=== PATIENT | male | born 1935 | race Caucasian/White ===

== ENCOUNTER 2019-07-29 12:50 | Observation (INO) | payer MEDICARE ==
[~2019-07-29] VITALS: Ht 180.3 cm; Wt 78.3 kg
[2019-07-29 13:38] LABS: BASOPHILS ABSOLUTE AUTO 0.06 K/mm3 (0.00-0.23); BASOPHILS PERCENT AUTO 1 % (0-2); EOSINOPHILS ABSOLUTE AUTO 0.43 K/mm3 (0.00-0.68); EOSINOPHILS PERCENT AUTO 4 % (0-6); Hemoglobin 11.8 g/dL (13.5-17.5); IMMATURE GRAN ABSOLUTE AUTO 0.03 K/mm3 (0.00-0.10); IMMATURE GRAN PERCENT AUTO 0 % (0-1); LYMPHOCYTES ABSOLUTE AUTO 2.42 K/mm3 (0.84-5.20); LYMPHOCYTES PERCENT AUTO 25 % (21-46); MONOCYTES ABSOLUTE AUTO 0.91 K/mm3 (0.16-1.47); MONOCYTES PERCENT AUTO 9 % (4-13); Mean Corpuscular HGB 32.2 pg (26.0-34.0); Mean Corpuscular HGB Conc 31.9 g/dL (31.5-36.5); Mean Corpuscular Volume 101 fL (80-100); Mean Platelet Volume 10.3 fL (9.1-12.4); NEUTROPHILS ABSOLUTE AUTO 5.82 K/mm3 (1.96-9.15); NEUTROPHILS PERCENT AUTO 60 % (41-73); Platelet Count 210 K/mm3 (150-400); RDW Coefficient Variation 13.6 % (11.7-14.2); RDW Standard Deviation 50.6 fL (35.1-46.3); Red Blood Cell Count 3.67 M/mm3 (4.30-5.90); White Blood Cell Count 9.67 K/mm3 (4.00-11.30)
[2019-07-29] MEDS ORDERED: CARV6.25 PO (13:52)
[2019-07-29] MEDS ORDERED: K-Dur10 MEQ PO (13:53)
[2019-07-29] MEDS ORDERED: FURO40 PO (13:53)
[2019-07-29] MEDS ORDERED: LOSA50 PO (13:53)
[2019-07-29] MEDS ORDERED: Zocor20 MG PO (13:54)
[2019-07-29] MEDS ORDERED: ELIQUIS2.5 MG PO (13:54)
[2019-07-29] MEDS ORDERED: FISH OIL 1,001000 MG PO (13:55)
[2019-07-29] MEDS ORDERED: FOLGARD TABLET1 EACH PO (13:55)
[2019-07-29] MEDS ORDERED: MSM1000 MG PO (13:55)
[2019-07-29 13:56] LABS: Alanine Aminotransfer (ALT/SGP 11 U/L (12-78); Albumin, Blood 3.5 g/dL (3.4-5.0); Albumin/Globulin Ratio 0.9 (0.8-1.8); Alk Phos 118 U/L (50-136); Anion Gap 6 mmol/L (6-16); Aspartate Aminotrans (AST/SGOT 14 U/L (12-37); Bilirubin, Total 0.7 mg/dL (0.1-1.0); Blood Urea Nitrogen 21 mg/dL (8-24); Bun/Creatinine Ratio 15.6 (12.0-20.0); CO2, Blood 30 mmol/L (21-32); Chloride, Blood 106 mmol/L (98-108); Creatinine, Blood 1.35 mg/dL (0.60-1.20); Globulin, Blood 3.8 g/dL (2.2-4.0); Glomerular Filtration Rate 54 (60-); Glucose, Blood 90 mg/dL (70-99); Potassium, Blood 3.5 mmol/L (3.5-5.5); Sodium, Blood 142 mmol/L (136-145); Total Protein, Blood 7.3 g/dL (6.4-8.2); Troponin I <0.015 ng/mL (0.000-0.040)
[2019-07-29] MEDS ORDERED: THERA1 EACH PO (14:25)
--- NOTE | 2019-07-29 16:44 | NUR ---
Echocardiogram completed.
--- NOTE | 2019-07-29 18:32 | NUR ---
ASSUMED CARE APPROXIMATELY 1600; PT A&O; TRANSFERED SELF TO BED; SENT OVER [facility] FOLLOWING URGENT CARE VISIT THERE; SBA IN ROOM FOR BATHROOM PRIVILEGES; PT HERE FOR OBS FOR AFIB W/BRADYCARDIA; PT DENIES PAIN; DENIES CHEST PAIN; DENIES NEEDS AT THIS TIME; O2 SATS >92 ON RA; PT REPORTS HE HAS A HX OF AFIB AND LOW HR; STATES HE FELL FROM A LADDER AT HOME SEVERAL DAYS AGO AND HAS HAD MUSCLE SORENESS AND BACK PAIN SINCE; STATES HE HAS PAIN IN HIS CHEST IN THE MORNINGS WHEN HE GETS OUT OF BED BUT SAID IT IS MUSCLE RELATED, DENIES CARDIAC RELATED; CALL LIGHT IN REACH; BED LOWEST POSITION; WILL CONTINUE MONITOR AND ASESS UNTIL HAND OF TO NOC SHIFT RN.
--- NOTE | 2019-07-29 20:58 | NUR ---
Assumed care Assumed care of pt at approx 1920; VSS with HR in 50's. Pt denies chest pain or pressure, denies SOB, denies any sx of bradycardia. Pt appears in no apparent sign of distress, breathing easy and unlabored at rest. Pt alert and oriented, answers questions appropriately, moves all extremities independantly. Pt able to recalls events of recent fall at home, able to recall events that lead to hospital stay. Appears to be an accurate historian. Pt able to make needs known by using call light. Pt educated extensively by this RN to call before ambulation to ensure safety. Pt verbalized understanding. Will continue to monitor.
--- NOTE | 2019-07-29 21:00 | NUR ---
Bradycardia in 30's: supervisor sound technician notified this RN of bradycardia of 32-35 that sustained for approx 1 minute. This RN immediately at bedside, pt presents asleep. this RN woke pt up and HR increased to 60 bpm. pt denies chest pain or pressure, denies SOB. Pt assisted to sit on edge of bed, pt does c/o of mild dizziness with positional changes that pt states "this happens in the morning". Dizziness resolved within moments of position change. Pt back to lying in low fowlers; HR back down to 45 bpm at this time.
--- NOTE | 2019-07-30 06:23 | NUR ---
Shift Summary Pt remains with bradycardia this shift, remains asymptomatic. HR average in mid 40's but has touched down as low at 29. Provider made aware. Zoll placed at bedside per clinical judegment. Other VSS. No acute changes from initial shift assessment. Alert and oriented, able to make needs known, uses call light appropriately, follows commands and directions. Pt denies any cardiac symptoms or sustained dizziness or lightheadedness, denies chest pain or pressure. Pt denies pain. No acute concerns to note this shift apart from continued bradycardia. Will continue to monitor undtil petra RN assumes care.
--- NOTE | 2019-07-30 15:00 | NUR ---
DISCHARGE NOTE PT STABLE FOR DISCHARGE. IV REMOVED. DISCHARGE INSTRUCTIONS AND DISCHARGE MEDCIATIONS REVIEWED WITH PT. PT VERBALIZES UNDERSTANDING AND DENIES QUESTIONS. [facility] CALLED TO PLACE ZIOPATCH PRIOR TO LEAVING THE FACILITY. PT DISCHARGED VIA WHEELCHAIR WITH BELONGINGS TO WAITING CAR.
== END 2019-07-30 15:12 | disposition home or self-care (01) ==
LOC: ER 12:50 → PCU 14:45
PROVIDERS: Emergency Medicine; ADMIT Family Medicine
DX: I48.20 Chronic atrial fibrillation, unspecified (principal); I12.9 Hypertensive chronic kidney disease with stage 1 through stage 4 chronic kidney disease, or unspecified chronic kidney disease; T14.8XXA Other injury of unspecified body region, initial encounter; N18.3 Chronic kidney disease, stage 3 (moderate); W11.XXXA Fall on and from ladder, initial encounter; E78.5 Hyperlipidemia, unspecified; D63.1 Anemia in chronic kidney disease; H91.90 Unspecified hearing loss, unspecified ear; Z88.8 Allergy status to other drugs, medicaments and biological substances; Z79.01 Long term (current) use of anticoagulants; Z79.899 Other long term (current) drug therapy; Z87.891 Personal history of nicotine dependence
CPT/HCPCS: 36415; 71045; 80053; 84484; 85025; 93005; 93010; 93306; 99285-25

== ENCOUNTER 2020-02-13 10:17 | Observation (INO) | payer OTHER, MEDICARE ==
[~2020-02-13] VITALS: Ht 180.3 cm; Wt 79.1 kg
[~2020-02-13 10:17] MED LIST: CARV6.25 PO; FISH OIL 1,001000 MG PO; FOLGARD TABLET1 EACH PO; MSM1000 MG PO; THERA1 EACH PO
[2020-02-13 11:22] LABS: BASOPHILS ABSOLUTE AUTO 0.05 K/mm3 (0.00-0.23); BASOPHILS PERCENT AUTO 1 % (0-2); EOSINOPHILS ABSOLUTE AUTO 0.17 K/mm3 (0.00-0.68); EOSINOPHILS PERCENT AUTO 2 % (0-6); Hematocrit 25.4 % (37.0-53.0); Hemoglobin 7.4 g/dL (13.5-17.5); IMMATURE GRAN ABSOLUTE AUTO 0.03 K/mm3 (0.00-0.10); IMMATURE GRAN PERCENT AUTO 0 % (0-1); LYMPHOCYTES ABSOLUTE AUTO 1.72 K/mm3 (0.84-5.20); LYMPHOCYTES PERCENT AUTO 23 % (21-46); MONOCYTES ABSOLUTE AUTO 0.76 K/mm3 (0.16-1.47); MONOCYTES PERCENT AUTO 10 % (4-13); Mean Corpuscular HGB 26.5 pg (26.0-34.0); Mean Corpuscular HGB Conc 29.1 g/dL (31.5-36.5); Mean Corpuscular Volume 91 fL (80-100); Mean Platelet Volume 9.9 fL (9.1-12.4); NEUTROPHILS ABSOLUTE AUTO 4.91 K/mm3 (1.96-9.15); NEUTROPHILS PERCENT AUTO 64 % (41-73); Platelet Count 224 K/mm3 (150-400); RDW Coefficient Variation 14.7 % (11.7-14.2); RDW Standard Deviation 49.2 fL (35.1-46.3); Red Blood Cell Count 2.79 M/mm3 (4.30-5.90); White Blood Cell Count 7.64 K/mm3 (4.00-11.30)
[2020-02-13 11:42] LABS: International Normalized Ratio 1.18; Prothrombin Time Results 12.5 Sec (9.7-11.5)
[2020-02-13 11:45] LABS: Albumin, Blood 3.4 g/dL (3.4-5.0); Bilirubin, Total 0.6 mg/dL (0.1-1.0); Bun/Creatinine Ratio 17.3 (12.0-20.0); Calcium, Blood 8.4 mg/dL (8.5-10.1); Creatinine, Blood 1.56 mg/dL (0.60-1.20); Globulin, Blood 3.5 g/dL (2.2-4.0); Potassium, Blood 4.2 mmol/L (3.5-5.5); Total Protein, Blood 6.9 g/dL (6.4-8.2)
[2020-02-13] MEDS ORDERED: LOSA25 PO (12:36)
[2020-02-13] MEDS ORDERED: FURO20 PO (12:44)
[2020-02-13] MEDS ORDERED: ELIQUIS5 MG PO (12:45)
[2020-02-13] MEDS ORDERED: Zocor20 MG PO (12:45)
[2020-02-13] MEDS ORDERED: POTA10T PO (12:45)
--- NOTE | 2020-02-13 15:40 | NUR ---
PT BROUGHT TO [facility] VIA GURNEY. History, Chart, Medications and Allergies reviewed before start of procedure.Patient confirms NPO status and agrees with scheduled surgery. Lungs clear T/O to Auscultation.
--- NOTE | 2020-02-13 15:48 | NUR ---
02/13/20 1548 Loy Glover PATIENT DETERMINED TO BE ASA APPROPRIATE FOR PROPOFOL SEDATION PRIOR TO START OF PROCEDURE BY DR. Phillips Block Placed. 3-LEAD EKG REVIEWED WITH PHYSICIAN PRIOR TO START OF PROCEDURE. History, Chart, Medications and Allergies reviewed before start of procedure.MONITOR INTACT WITH CONTINUOUS PULSE OXIMETRY AND INTERMITTENT BP.O2 VIA N/C INTACT THROUGHOUT SEDATION/PROCEDURE.
--- NOTE | 2020-02-13 17:13 | NUR ---
SHIFT SUMMARY PT ARRIVED TO THE FLOOR EARLY THIS AFTERNOON. PT TRANSFERED FROM THE GURNEY TO THE BED INDEPENDENTLY. PT ALERT AND ORIENTED THROUGHOUT THIS SHIFT. PT NPO UNTIL UPPER GI SCOPE. PT ADVANCED TO MECHANICAL SOFT AFTER SCOPE. PT COOPERATIVE WITH CARE. PT SITTING UP IN BED.
[2020-02-13 17:31] LABS: Hematocrit 26.1 % (37.0-53.0); Hemoglobin 7.5 g/dL (13.5-17.5)
[2020-02-13 22:57] LABS: Hematocrit 23.9 % (37.0-53.0)
--- NOTE | 2020-02-14 06:33 | NUR ---
REPAIRER VENEER SHEET SUMMARY PT ALERT AND ORIENTED THROUGHOUT SHIFT. TELE REPORTS AFIB AVERAGING HIGH 40S TO 50'S. PT ASYMPTOMATIC, DENIES PAIN. PT HAD HGB OF 7.[address] JOYNER NOTIFIED, RECIEVED ORDER TO TRANSFUSE 1 UNIT PRBC. PT TOLERATED WELL. VSS. WILL CONTINUE TO MONITOR.
[2020-02-14 07:02] LABS: Hematocrit 28.5 % (37.0-53.0); Hemoglobin 8.7 g/dL (13.5-17.5)
--- NOTE | 2020-02-14 07:53 | NUR ---
ASSUMPTION OF CARE NOTE- PATIENT IS PLEASANT, ALERT AND ORIENTED. NO ACUTE CONCERNS AT THIS TIME. HE IS INDEPENDENT IN THE ROOM. PULSES PALPABLE, HEART SOUNDS IRREGULAR AND IS ON TELEMETRY AT THIS TIME RUNNING AFIB WITH LVR @ 46. LUNGS SOUND CLEAR AT THIS TIME, AND DENIES ABDOMINAL PAIN.
[2020-02-14] MEDS ORDERED: PANT40 PO (10:58)
--- NOTE | 2020-02-14 12:32 | NUR ---
DISCHARGE SUMMARY PATIENT IS PLEASANT, ALERT AND ORIENTED. WALKED DOWN TO THE PARKING LOT AND TO THE CAR BY NURSE. ZIOPATCH PLACED PRIOR TO DISCHARGE AND IV REMOVED. ALL INSTRUCTIONS GIVEN TO THE PATIENT. NO ACUTE CONCERNS AT TIME OF DISCHARGE.
== END 2020-02-14 12:02 | disposition home or self-care (01) ==
LOC: ER 10:17 → MEDS 10:18
PROVIDERS: Emergency Medicine; Student in an Organized Health Care Education/Training Program; ADMIT Internal Medicine
PROC: 0DJ08ZZ Inspection of Upper Intestinal Tract, Via Natural or Artificial Opening Endoscopic (ICD-10-PCS; principal; 2020-02-13 16:30)
DX: K25.4 Chronic or unspecified gastric ulcer with hemorrhage (principal); D62 Acute posthemorrhagic anemia; R00.1 Bradycardia, unspecified; I12.9 Hypertensive chronic kidney disease with stage 1 through stage 4 chronic kidney disease, or unspecified chronic kidney disease; N18.3 Chronic kidney disease, stage 3 (moderate); D63.1 Anemia in chronic kidney disease; E78.5 Hyperlipidemia, unspecified; I48.91 Unspecified atrial fibrillation; Z88.8 Allergy status to other drugs, medicaments and biological substances; Z79.01 Long term (current) use of anticoagulants; Z79.899 Other long term (current) drug therapy
CPT/HCPCS: 36415; 80053; 82272; 85014; 85018; 85025; 85610; 86850; 86900; 86901; 86920; 93005; 93010; 96365; 99285-25; C9113; J2704; J7040; J7120; P9016

== ENCOUNTER 2020-07-20 09:56 | Emergency (ER) | payer OTHER, MEDICARE ==
[~2020-07-20] VITALS: Ht 172.7 cm; Wt 90.7 kg
[~2020-07-20 09:56] MED LIST changes: +ELIQUIS5 MG PO; +FURO20 PO; +LOSA25 PO; +PANT40 PO; +POTA10T PO; +Zocor20 MG PO
[2020-07-20 10:15] LABS: Chloride (POC) 102 mmol/L (98-108); Creatinine (POC) 1.3 mg/dL (0.8-1.3); Glucose (ISTAT POC) 146 mg/dL (70-99); Hemoglobin (POC) 13.9 g/dL (13.5-17.5); Potassium (POC) 3.8 mmol/L (3.5-5.5); Sodium (POC) 141 mmol/L (135-148); Total CO2 (POC) 27 mmol/L (21-32)
[2020-07-20 10:19] LABS: BASOPHILS ABSOLUTE AUTO 0.02 K/mm3 (0.00-0.23); BASOPHILS PERCENT AUTO 0 % (0-2); EOSINOPHILS PERCENT AUTO 0 % (0-6); Hematocrit 40.7 % (37.0-53.0); Hemoglobin 12.8 g/dL (13.5-17.5); IMMATURE GRAN ABSOLUTE AUTO 0.05 K/mm3 (0.00-0.10); IMMATURE GRAN PERCENT AUTO 0 % (0-1); LYMPHOCYTES ABSOLUTE AUTO 1.45 K/mm3 (0.84-5.20); LYMPHOCYTES PERCENT AUTO 11 % (21-46); MONOCYTES ABSOLUTE AUTO 0.65 K/mm3 (0.16-1.47); MONOCYTES PERCENT AUTO 5 % (4-13); Mean Corpuscular HGB 29.1 pg (26.0-34.0); Mean Corpuscular HGB Conc 31.4 g/dL (31.5-36.5); Mean Corpuscular Volume 93 fL (80-100); Mean Platelet Volume 11.2 fL (9.1-12.4); NEUTROPHILS PERCENT AUTO 83 % (41-73); Platelet Count 130 K/mm3 (150-400); RDW Coefficient Variation 18.4 % (11.7-14.2); RDW Standard Deviation 63.1 fL (35.1-46.3); White Blood Cell Count 12.97 K/mm3 (4.00-11.30)
[2020-07-20 10:33] LABS: International Normalized Ratio 1.12; Prothrombin Time Results 11.9 Sec (9.7-11.5)
[2020-07-20 10:38] LABS: Alanine Aminotransfer (ALT/SGP 11 U/L (12-78); Albumin, Blood 3.8 g/dL (3.4-5.0); Albumin/Globulin Ratio 1.1 (0.8-1.8); Alk Phos 76 U/L (50-136); Anion Gap 8 mmol/L (6-16); Aspartate Aminotrans (AST/SGOT 16 U/L (12-37); Bilirubin, Total 0.9 mg/dL (0.1-1.0); Blood Urea Nitrogen 18 mg/dL (8-24); CO2, Blood 27 mmol/L (21-32); Calcium, Blood 9.2 mg/dL (8.5-10.1); Chloride, Blood 106 mmol/L (98-108); Creatinine, Blood 1.29 mg/dL (0.60-1.20); Ethanol (Alcohol), Blood, Med <3 mg/dL; Globulin, Blood 3.6 g/dL (2.2-4.0); Glomerular Filtration Rate 56 (60-); Glucose, Blood 134 mg/dL (70-99); Potassium, Blood 3.7 mmol/L (3.5-5.5); Sodium, Blood 141 mmol/L (136-145); Total Protein, Blood 7.4 g/dL (6.4-8.2)
[2020-07-20 11:05] LABS: Source, Urine Catheter
[2020-07-20 11:13] LABS: Appearance, Urine Clear (Clear); Bilirubin, Urine Neg (Neg); Blood, Urine 1+ (Neg); Color, Urine Yellow (P-Yellow); Glucose Qualitative, Urine Neg (Neg); Ketones, Urine 1+ (Neg); Leukocyte Esterase, Urine Neg (Neg); Nitrite, Urine Neg (Neg); Protein, Urine Neg (Neg); Urobilinogen, Urine NORM (Normal)
[2020-07-20 11:26] LABS: U Amphetamine Screen Not Detected; U Barbituate Screen Not Detected; U Benzodiazapine Screen Not Detected; U Buprenorphine Screen Not Detected; U Cannabinoids Screen Not Detected; U Cocaine Screen Not Detected; U Methadone Screen Not Detected; U Methamphetamine Screen Not Detected; U Opiates Screen Not Detected; U Oxycodone Screen Not Detected; U Phencyclidine Screen Not Detected; U Propoxyphene Screen Not Detected
[2020-07-20 11:31] LABS: Bacteria Not Seen /hpf; Squamous Epithelial Cells Not Seen /hpf (Few); White Blood Cells, Urine 0-2 /hpf (0-5)
== END 2020-07-20 12:00 | disposition short-term general hospital (02) ==
LOC: ER 09:56
PROVIDERS: Physician Assistant
DX: I62.9 Nontraumatic intracranial hemorrhage, unspecified (principal); I48.91 Unspecified atrial fibrillation; Z20.828 Contact with and (suspected) exposure to other viral communicable diseases; I12.9 Hypertensive chronic kidney disease with stage 1 through stage 4 chronic kidney disease, or unspecified chronic kidney disease; N18.30 Chronic kidney disease, stage 3 unspecified; K21.9 Gastro-esophageal reflux disease without esophagitis; E78.5 Hyperlipidemia, unspecified; Z79.01 Long term (current) use of anticoagulants; Z79.899 Other long term (current) drug therapy; Z88.8 Allergy status to other drugs, medicaments and biological substances
CPT/HCPCS: 31500; 31720; 36415; 51702; 70450; 71045; 80047; 80053; 81001; 83880; 84484; 85014; 85025; 85379; 85610; 85730; 93005; 93010; 94002; 96365-59; 96368; 96375-59; 99291-25; C9132; G0480; J0330; J2405; J2704; J7050; U0003